=== PATIENT | female | born 1970 | race Asian ===

== ENCOUNTER 2017-10-05 09:26 | Observation (INO) | payer OTHER ==
--- NOTE | 2017-10-05 09:27 | EDPHY ---
H & P Time Seen by Provider: 10/05/17 09:26 HPI/ROS: CHIEF COMPLAINT: Shortness of breath HISTORY OF PRESENT ILLNESS: Patient transported by EMS from [facility]. She presented at urgent care today with shortness of breath with a saturation in the 80s and tachycardic into the 130s. Received breathing treatments and arrives in the ER now. Patient was seen for similar symptoms back in 2015 and [place], did see Maria Dolores at that time from pulmonology and was told she might have adult onset asthma. Symptoms started about a week ago. Today severe, associated with wheezing, racing heart. Worse with exertion. Not associated with fever or hemoptysis or leg swelling or chest pain. REVIEW OF SYSTEMS: Eye: no change in vision ENT: no sore throat Cardiac: HPI Pulmonary: HPI Abdomen: no vomiting, diarrhea, abdominal pain Musculoskeletal: no back pain Skin: no rash Neuro: no headache Constitutional: no fever : no urinary symptoms A comprehensive 10 point review of systems is otherwise negative aside from elements mentioned in the history of present illness. PAST MEDICAL HISTORY: Blind Social history: Nonsmoker General Appearance: Alert and conversant, cooperative. Eyes: No scleral icterus. ENT, Mouth: Normal mucous membranes. Respiratory: Bilateral expiratory wheezing with prolonged expiratory phase, lung sounds symmetric. Speaks in full sentences on nasal cannula oxygen. Cardiovascular: Regular rate and rhythm. Gastrointestinal: Abdomen is soft and non tender. Neurological: Alert, face symmetric, normal motor and sensory in extremities. Skin: Warm and dry, no rashes. Musculoskeletal: No peripheral edema. No calf tenderness. Psychiatric: Not agitated. Emergency Department course/MDM: Patient presents with acute bronchospasm, received DuoNeb pre-hospital. Albuterol and 125 Solu-Medrol in the ED, chest x-ray discussed and consented. EKG and labs. Will require admission if remains hypoxemic. 1158: Still requires oxygen, drops below 90% on room air. Still very wheezy, admission for further treatment. Constitutional: Initial Vital Signs Temperature (C) 36.7 C 18 09:26 Heart Rate 103 H 18 09:26 Respiratory Rate 22 H 18 09:26 Blood Pressure 145/92 H 10/05/17 09:26 O2 Sat (%) 88 L 10/05/17 09:26 O2 Delivery Mode Nasal Cannula O2 (L/minute) 2 Allergies/Adverse Reactions: aspirin Allergy (Verified 10/05/17 09:52) Home Medications: Medication Instructions Recorded NK [No Known Home Meds] 10/05/17 Medical Decision Making - Diagnostics EKG Interpretation: 12-lead EKG interpreted by me; official reading is in trace master. My interpretation is sinus tachycardia with biatrial abnormalities and nonspecific T-wave inversions inferiorly. Imaging Results: Imaging Impressions Chest X-Ray 10/05/17 09:50 Impression: Airways disease. No pneumonia. Imaging: I viewed and interpreted images myself Differential Diagnosis: Differential diagnosis considered for shortness of breath including but not limited to pulmonary infectious process, COPD, asthma, pulmonary embolus and congestive heart failure. Consult/Admit Bed Type: [place] [id number] for [facility] - Data Points Laboratory Results: Laboratory Results 10/05/17 09:45 10/05/17 09:45 10/05/17 10/05/17 09:45 09:45 WBC 8.32 10^3/uL 10^3/uL (3.80-9.50) RBC 4.80 10^6/uL 10^6/uL (4.18-5.33) Hgb 12.4 g/dL L g/dL (12.6-16.3) Hct 38.8 % % (38.0-47.0) MCV 80.8 fL L fL (81.5-99.8) MCH 25.8 pg L pg (27.9-34.1) MCHC 32.0 g/dL L g/dL (32.4-36.7) RDW 14.4 % % (11.5-15.2) Plt Count 376 10^3/uL 10^3/uL (150-400) MPV 10.7 fL fL (8.7-11.7) Neut % (Auto) 66.9 % % (39.3-74.2) Lymph % (Auto) 13.5 % L % (15.0-45.0) [place] % (Auto) 6.4 % % (4.5-13.0) Eos % (Auto) 12.6 % H % (0.6-7.6) Baso % (Auto) 0.4 % % (0.3-1.7) Nucleat RBC Rel Count 0.0 % % (0.0-0.2) Absolute Neuts (auto) 5.57 10^3/uL 10^3/uL (1.70-6.50) Absolute Lymphs (auto) 1.12 10^3/uL 10^3/uL (1.00-3.00) Absolute Monos (auto) 0.53 10^3/uL 10^3/uL (0.30-0.80) Absolute Eos (auto) 1.05 10^3/uL H 10^3/uL (0.03-0.40) Absolute Basos (auto) 0.03 10^3/uL 10^3/uL (0.02-0.10) Absolute Nucleated RBC 0.00 10^3/uL 10^3/uL (0-0.01) Immature Gran % 0.2 % % (0.0-1.1) Immature Gran # 0.02 10^3/uL 10^3/uL (0.00-0.10) Sodium 140 mEq/L mEq/L (135-145) Potassium 4.3 mEq/L mEq/L (3.3-5.0) Chloride 101 mEq/L mEq/L (97-110) Carbon Dioxide 25 mEq/l mEq/l (22-31) Anion Gap 14 mEq/L mEq/L (8-16) BUN 12 mg/dL mg/dL (7-23) Creatinine 0.5 mg/dL L mg/dL (0.6-1.0) Estimated GFR > 60 Glucose 119 mg/dL H mg/dL (70-100) Calcium 9.9 mg/dL mg/dL (8.5-10.4) Medications Given: Discontinued Medications Albuterol (Proventil Neb) 3 ml IH EDNOW ONE Stop: 10/05/17 09:51 Last Admin: 10/05/17 09:51 Dose: 3 ml Albuterol (Proventil Neb) 3 ml IH EDNOW ONE Stop: 10/05/17 09:51 Last Admin: 10/05/17 10:15 Dose: 3 ml Albuterol (Proventil Neb) 3 ml IH EDNOW ONE Stop: 10/05/17 11:01 Last Admin: 10/05/17 11:05 Dose: 3 ml Methylprednisolone Sodium Succinate (Solu-Medrol) 125 mg IVP EDNOW ONE Stop: 10/05/17 09:51 Last Admin: 10/05/17 10:06 Dose: 125 mg Departure - Departure Disposition: [facility] Acute Clinical Impression: Exacerbation of asthma Qualifiers: Asthma severity: moderate Asthma persistence: persistent Qualified Code(s): J45.41 - Moderate persistent asthma with (acute) exacerbation Condition: Good
[2017-10-05] MEDS ORDERED: ALBUTEROL 3 ML DEYVIAL ONE (09:47)
[2017-10-05] MEDS ORDERED: ALBUTEROL 3 ML DEYVIAL IH ONE ×3 (09:50→11:00)
[2017-10-05] MEDS ORDERED: methylPREDNISolone SOD SUCC 125 MG/2 ML VIAL IVP ONE (09:50)
[2017-10-05 10:15] LABS: PLATELET COUNT 376 10^3/uL (150-400)
--- NOTE | 2017-10-05 10:39 | CPEKG ---
Heart Rate: 103 RR Interval: 583 P-R Interval: 124 QRSD Interval: 74 QT Interval: 364 QTC Interval: 477 P Savage: 82 QRS Savage: 77 T Wave Savage: -68 EKG Severity - ABNORMAL ECG - EKG Impression: SINUS TACHYCARDIA EKG Impression: EMELY, CONSIDER BIATRIAL ABNORMALITIES EKG Impression: REPOL ABNRM SUGGESTS ISCHEMIA, INFERIOR LEADS Electronically Signed By: Tito Correia 05-Oct-2017 13:28:33
[2017-10-05] MEDS ORDERED: ALBUTEROL 3 ML DEYVIAL IH PRN (14:14)
[2017-10-05] MEDS: predniSONE 20 MG TAB PO SCH (14:39)
[2017-10-05] MEDS ORDERED: diphenhydrAMINE 25 MG CAP PO PRN (14:46)
[2017-10-05] MEDS ORDERED: ACETAMINOPHEN 325 MG TAB PO PRN (14:46)
[2017-10-05] MEDS ORDERED: ONDANSETRON DISINTEGRATING 4 MG TAB PO PRN (14:46)
[2017-10-05] MEDS ORDERED: ONDANSETRON 4 MG/2 ML VIAL IVP PRN (14:46)
[2017-10-05] MEDS ORDERED: MAGNESIUM SULF 1 GM/DEXTROSE 100 ML IV ONE (15:20)
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
[2017-10-05] MEDS ORDERED: LEVALBUTEROL 1.25 MG/3 ML DEYVIAL ONE (16:40)
[2017-10-05] MEDS: BECLOMETHASONE QVAR 40 REDIHALER 120 INH/10.6 GM MDI IH SCH ×2 (16:44→21:32)
[2017-10-05] MEDS ORDERED: IPRATROPIUM/ALBUTEROL 3 ML DEYVIAL IH SCH (18:00)
[2017-10-05] MEDS ORDERED: LEVALBUTEROL 1.25 MG/3 ML DEYVIAL IH SCH (22:00)
[2017-10-06 07:36] VITALS: BP 119/81
[2017-10-06] MEDS ORDERED: LEVALBUTEROL 1.25 MG/3 ML DEYVIAL IH SCH (08:00)
[2017-10-06] MEDS: BECLOMETHASONE QVAR 40 REDIHALER 120 INH/10.6 GM MDI IH SCH (09:17)
[2017-10-06] MEDS: predniSONE 20 MG TAB PO SCH (10:10)
[2017-10-06] MEDS ORDERED: ALBUTEROL 60 PUFFS/8 GM MDI IH PRN (11:13)
--- NOTE | 2017-10-06 11:38 | ASMTCMCOM ---
CM Note CM Note Notes: Spoke w/, she is discharging pt back home but would like her to follow up with her in clinic. CM spoke w/t pt and made an appointment for pt w/ Dr. Kelly on October 10 at 11:30 at [facility], [place]. Not other needs specified, CM available for any changes. DC Plans: Independent Date Signed: 10/06/2017 11:37 AM Electronically Signed By:Fiona Talley RN
--- NOTE | 2017-10-06 11:38 | ASMTLACE ---
LACE Length of stay for Answers: 1 day current admission Acuity / Level of Answers: Yes Care: Did the patient have an inpatient admission? Comorbidities - select Answers: Chronic pulmonary disease all that apply # of Emergency department Answers: 1-2 visits in the last 6 months Score: 7 Date Signed: 10/06/2017 11:38 AM Electronically Signed By:Fiona Talley RN
--- NOTE | 2017-10-11 10:23 | GDS ---
[f rep st] DISCHARGE SUMMARY SERVICE: [facility] hospitalist. CONSULTS: None. PROCEDURE: Chest x-ray, which showed airways disease. No pneumonia. EKG showed sinus tachycardia, T-wave inversion in V1 and V2 and some nonspecific repol abnormalities likely related to tachypnea. ADMISSION DIAGNOSES: Acute asthma exacerbation, hyperglycemia. DISCHARGE DIAGNOSES: Acute asthma exacerbation, hyperglycemia, acute onset hypoxic respiratory failure. HISTORY AND PHYSICAL: Please see previously dictated note by Nancy Vogel NP. HOSPITAL COURSE: The patient came into the emergency department because of worsening shortness of breath after being evaluated at [facility] , where her oxygen saturations were in the 80s with significant tachycardia. She was treated with IV steroids and albuterol and admitted to the hospital overnight for further treatments for acute onset hypoxic respiratory failure. She was started on oxygen requiring up to 2 L overnight, but at time of discharge, she was 90% on room air and did not want to be sent home with oxygen as she was feeling much better. She was started on oral steroids, a Qvar inhaler, and albuterol inhaler if needed. She was afebrile throughout her stay. CBC was unremarkable. Troponin was negative and glucose was noted to be slightly elevated at 119, but that was not fasting. She was instructed on how to use inhalers by Respiratory Therapy, and she is going to be discharged home to do a quick followup with me at the [facility] to establish care/hospital followup. DISCHARGE MEDICATIONS: Qvar redi inhaler 40 one puff twice a day, prednisone 40 mg once a day for 3 more days, albuterol inhaler 2 puffs as needed p.r.n. DISCHARGE INSTRUCTIONS: She should follow up on September 10 at my office. Appointment was made for her. If at any time she has increasing shortness of breath, chest pain, fever, or any other concerns, she should follow up immediately at the emergency department for evaluation. /[id number]/MODL MTDD
== END 2017-10-06 12:04 | disposition home or self-care (01) ==
LOC: EDUNIT# → EEVIPCON 09:26 → INTOOBSV 12:04 → F3E 13:25
PROVIDERS: ADMIT Family Medicine; ATTEND Family Medicine
DX: J45.901 Unspecified asthma with (acute) exacerbation (principal); R73.9 Hyperglycemia, unspecified; T38.0X5A Adverse effect of glucocorticoids and synthetic analogues, initial encounter; R09.02 Hypoxemia; R07.9 Chest pain, unspecified; H54.7 Unspecified visual loss; Z79.51 Long term (current) use of inhaled steroids
CPT/HCPCS: 71046; 93005; 96374; 99285; G0378; J2930; J3475; J7512; J7613